=== PATIENT | female | born 1970 ===

== ENCOUNTER 2017-05-29 17:37 | Emergency (ER) | payer BC ==
--- NOTE | 2017-05-29 19:32 | C.PDOC ---
History Of Present Illness 47 yr old female presents to the ER with complaints of burning sensation to bilateral lower extremity and the hand in a stocking glove distribution for the past many months. Patient has already been diagnosed with diabetes peripheral neuropathy, takes Gabapentin 600 mg 2x a day as needed and a muscle relaxed occasionally. Patient states the muscle relaxer makes her too sleepy to work. Patient denies trauma, fever, chills, chest pain, SOB, nausea, vomiting, weakness or numbness. Time Seen by Provider: 05/29/17 19:18 Chief Complaint (Nursing): Lower Extremity Problem/Injury History Per: Patient History/Exam Limitations: no limitations Onset/Duration Of Symptoms: Days Past Medical History Reviewed: Historical Data, Nursing Documentation, Vital Signs Vital Signs: Last Vital Signs Temp 98 F 05/29/17 20:07 Pulse 87 05/29/17 20:07 Resp 20 05/29/17 20:07 BP 141/70 05/29/17 20:07 Pulse Ox 98 05/29/17 20:07 Family History: States: No Known Family Hx - Social History Hx Alcohol Use: Yes Hx Substance Use: No - Immunization History Hx Tetanus Toxoid Vaccination: No Hx Influenza Vaccination: Yes Hx Pneumococcal Vaccination: No Review Of Systems Except As Marked, All Systems Reviewed And Found Negative. Cardiovascular: Negative for: Chest Pain Respiratory: Negative for: Shortness of Breath Gastrointestinal: Negative for: Nausea, Vomiting Musculoskeletal: Positive for: Other (+ burning sensation to lower extremity and hands) Neurological: Negative for: Weakness, Numbness Physical Exam - Physical Exam Appears: Non-toxic, No Acute Distress, Chronically Ill, Other (+wasting ) Skin: Warm, Dry Oral Mucosa: Moist Respiratory: Normal Breath Sounds, No Rales, No Rhonchi, No Stridor, No Wheezing Extremity: No Calf Tenderness, Other (+ thinning of lower extremity, decrease sensation in bilateral feet, no tenderness to palpation to lower extremity) Neurological/Psych: Oriented x3, Normal Speech ED Course And Treatment O2 Sat by Pulse Oximetry: 100 (RA) Pulse Ox Interpretation: Normal Medical Decision Making Medical Decision Making: diabetic peripheral neuropathy, chronic already on gabapentin but taking PRN, encouraged to take regularly. Stepwise increase in meds for this dz to be arranged with Dr. Garcia- AUDIE BERNAL susp of DVT Disposition Doctor Will See Patient In The: Office Counseled Patient/Family Regarding: Studies Performed, Diagnosis - Disposition Referrals: Vic Garcia DO [Staff Provider] - Disposition: HOME/ ROUTINE Disposition Time: 19:31 Condition: GOOD Additional Instructions: continue gabapentin 600 mg twice a day EVERY day Discontinue the muscle relaxant medication if it makes you too sleepy to work Consider step-gómez increased meds per Dr. Garcia. Cardiovascular exercise: 45 mins/day x 5 days/week You need to increase lean muscle mass Follow-up w Dr. Garcia Instructions: Peripheral Neuropathy, Neuropathic Pain Forms: [employer] ([employer]) - Clinical Impression Clinical Impression: Peripheral neuropathic pain - Scribe Statement The provider has reviewed the documentation as recorded by the Shahidibe Lucille Tripathi Provider Attestation: All medical record entries made by the Scribe were at my direction and personally dictated by me. I have reviewed the chart and agree that the record accurately reflects my personal performance of the history, physical exam, medical decision making, and the department course for this patient. I have also personally directed, reviewed, and agree with the discharge instructions and disposition.
[2017-05-29 20:08] VITALS: BP 141/70; PULSE 87; RESP 20; TEMP 98
[2017-05-29 20:35] VITALS: O2SAT 100
== END 2017-05-29 20:07 | disposition home or self-care (01) ==
LOC: C.ER 17:37
DX: G62.9 Polyneuropathy, unspecified (principal)

== ENCOUNTER 2017-08-19 13:56 | Emergency (ER) | payer MEDICAID ==
[2017-08-19 14:25] VITALS: TEMP 98
[2017-08-19 16:31] VITALS: BP 147/87; PULSE 90; RESP 20; O2SAT 99
--- NOTE | 2017-08-19 16:45 | C.PDOC ---
History Of Present Illness Pt c/o right buttock pain radiating down right thigh. Denies injury. Time Seen by Provider: 08/19/17 15:38 Chief Complaint (Nursing): Lower Extremity Problem/Injury History Per: Patient, Family Onset/Duration Of Symptoms: Days (3) Current Symptoms Are (Timing): Still Present Severity: Moderate Additional History Per: Prior Records Past Medical History Reviewed: Historical Data, Nursing Documentation, Vital Signs Vital Signs: Last Vital Signs Temp 98 F 08/19/17 14:22 Pulse 90 08/19/17 16:30 Resp 20 08/19/17 16:30 BP 147/87 08/19/17 16:30 Pulse Ox 99 08/19/17 16:30 - Medical History PMH: No Chronic Diseases, Diabetes Family History: States: Unknown Family Hx - Social History Hx Alcohol Use: Yes Hx Substance Use: No - Immunization History Hx Tetanus Toxoid Vaccination: No Hx Influenza Vaccination: No Hx Pneumococcal Vaccination: No Review Of Systems Except As Marked, All Systems Reviewed And Found Negative. Constitutional: Negative for: Fever Cardiovascular: Negative for: Chest Pain Respiratory: Negative for: Shortness of Breath Gastrointestinal: Negative for: Vomiting, Abdominal Pain Genitourinary: Negative for: Dysuria, Incontinence Musculoskeletal: Negative for: Neck Pain, Back Pain, Leg Pain Skin: Negative for: Rash Neurological: Negative for: Weakness, Numbness Physical Exam - Physical Exam Appears: Non-toxic, No Acute Distress Skin: Normal Color, Warm, Dry, No Rash Head: Atraumatic, Normacephalic Eye(s): bilateral: Normal Inspection, PERRL, EOMI Neck: Normal ROM, Supple Cardiovascular: Rhythm Regular Respiratory: Normal Breath Sounds, No Accessory Muscle Use Gastrointestinal/Abdominal: Soft, No Tenderness Back: No CVA Tenderness, No Vertebral Tenderness Extremity: Normal ROM, No Pedal Edema, No Calf Tenderness Neurological/Psych: Oriented x3, Normal Motor, Normal Sensation ED Course And Treatment O2 Sat by Pulse Oximetry: 99 Pulse Ox Interpretation: Normal - CT Scan/US RLE duplex Other Rad Studies (CT/US): Read By Radiologist, Radiology Report Reviewed CT/US Interpretation: Negative for DVT Disposition Counseled Patient/Family Regarding: Studies Performed, Diagnosis, Need For Followup, Rx Given - Disposition Referrals: Vic Garcia DO [Family Provider] - Disposition: HOME/ ROUTINE Disposition Time: 16:47 Condition: STABLE Additional Instructions: Follow up with your doctor for further evaluation and treatment. Return to the ER if you develop weakness, numbness, redness, swelling, worsening of symptoms or if you have any other concerns. Prescriptions: traMADol/Acetaminophen [Ultracet 325 MG-37.5 MG] 1 tab PO Q4 PRN #30 tab PRN Reason: Pain, Severe (8-10) Instructions: Sciatica (DC) - Clinical Impression Clinical Impression: Right sided sciatica
--- NOTE | 2017-08-20 15:16 | VASCLAB ---
PROCEDURE: Right Lower Extremity Venous Duplex Exam. HISTORY: Pain r/o DVT PRIORS: None. TECHNIQUE: Right common femoral, femoral, popliteal and posterior tibial, peroneal and great saphenous veins were evaluated. Flow was assessed with color Doppler, compressibility, assessment of phasic flow and augmentation response. Report prepared by TANIA Horan, RVT FINDINGS: RIGHT: 1. Common Femoral Vein: 1.1. Compressibility - Fully compressible: Thrombus - None: Flow - Phasic: Augmentation -Normal: Reflux - None. 2. Femoral Vein: 2.1. Compressibility - Fully compressible: Thrombus - None: Flow - Phasic: Augmentation -Normal: Reflux - None. 3. Popliteal Vein: 3.1. Compressibility - Fully compressible: Thrombus - None: Flow - Phasic: Augmentation -Normal: Reflux - None. 4. Posterior Tibial Vein: 4.1. Compressibility - Fully compressible: Thrombus - None: Flow - Phasic: Augmentation -Normal: Reflux - None. 5. Peroneal Vein: 5.1. Compressibility - Fully compressible: Thrombus - None: Flow - Phasic: Augmentation -Normal: Reflux - None. 6. Great Saphenous Vein: 6.1. Compressibility - Fully compressible: Thrombus -None: Flow - Phasic: Augmentation - Normal: Reflux - None. OTHER FINDINGS: IMPRESSION: No evidence of deep or superficial vein thrombosis of the right lower extremity with excellent venous flow. Normal valve function noted of the right side. Normal venous flow noted in the left common femoral vein.
== END 2017-08-19 16:56 | disposition home or self-care (01) ==
LOC: C.ER 13:56 → MERGE 13:56 → C.ER 16:56
DX: M54.31 Sciatica, right side (principal)

== ENCOUNTER 2017-12-10 17:53 | Emergency (ER) | payer MEDICAID, OTHER ==
[2017-12-10 18:29] VITALS: BP 166/80; PULSE 92; RESP 18; O2SAT 99
[2017-12-10 19:27] VITALS: TEMP 99
[2017-12-10] MEDS ORDERED: Lidocaine 2% MPF (5 ml) Inj ONE (19:33)
[2017-12-10] MEDS ORDERED: Tmp-Smz 800 mg-160 mg DS Tab PO STA (19:44)
--- NOTE | 2017-12-10 19:44 | C.PDOC ---
History Of Present Illness Patient complains of itchy rash for 4 days after eating seafood at restaurant. Patient is allergic to shellfish but states she had eaten this dish before without reaction. Patient states she has been very itchy and was scratching areas. Patient then reports noticing her right forehead has a lump that has become painful and swollen. Denies any fever, SOB or drainage. Time Seen by Provider: 12/10/17 19:20 Chief Complaint (Nursing): Abnormal Skin Integrity History Per: Patient History/Exam Limitations: no limitations Onset/Duration Of Symptoms: Days (4) Current Symptoms Are (Timing): Still Present Quality Of Symptoms: Itching Additional History Per: Patient Past Medical History Reviewed: Historical Data, Nursing Documentation, Vital Signs Vital Signs: Last Vital Signs Temp 99 F 12/10/17 19:27 Pulse 92 H 12/10/17 18:25 Resp 18 12/10/17 18:25 BP 166/80 H 12/10/17 18:25 Pulse Ox 99 12/10/17 20:49 - Medical History PMH: Diabetes Surgical History: No Surg Hx Family History: States: Unknown Family Hx - Social History Hx Alcohol Use: Yes Hx Substance Use: Yes - Immunization History Hx Tetanus Toxoid Vaccination: No Hx Influenza Vaccination: No Hx Pneumococcal Vaccination: No Review Of Systems Constitutional: Negative for: Fever Respiratory: Negative for: Shortness of Breath Skin: Positive for: Rash Physical Exam - Physical Exam Appears: Non-toxic, No Acute Distress Skin: Warm, Dry, Other (2x2cm tender erythematous fluctuant mass to right forehead, near medial eyebrow. multiple excoriations to bilateral forearms with underlying erythematous maculopapular rash) Head: Atraumatic Eye(s): bilateral: Normal Inspection Oral Mucosa: Moist Neck: Supple Chest: Symmetrical, No Deformity, No Tenderness Cardiovascular: Rhythm Regular Respiratory: Normal Breath Sounds, No Rales, No Rhonchi, No Wheezing Extremity: Normal ROM, Capillary Refill (less than 2 seconds ) Neurological/Psych: Oriented x3, Normal Speech, Normal Cognition ED Course And Treatment O2 Sat by Pulse Oximetry: 99 (on RA) Pulse Ox Interpretation: Normal - Incision & Drainage Of Abscess Anesthesia: Lidocaine 2% Prep Used: Betadine Procedure: Incised W/Scalpel Blade#: (11), Drained Pus, Irrigated Cavity W/ Saline, Probed To Break Up Loculations, Cultures Obtained And Sent To Lab Medical Decision Making Medical Decision Making: Impression: dermatitis and abscess to right forehead Plan: I&D, wound culture, Bactrim and Keflex Obtain verbal consent for I&D of ascess. Explain the reason for procedure and risk of further infection, scarring and bleeding. The patient agreed to procedure. The area was cleansed in the usual fashion with betadyne and saline. Using standard, sterile technique the skin was anesthetized with lidocaine 2% . Incision made and drained abscess of purulent material. See full note. The patient tolerated the procedure well. Culture sent to the lab for analysis. Disposition Counseled Patient/Family Regarding: Diagnosis, Need For Followup, Rx Given - Disposition Referrals: Vic Garcia DO [Staff Provider] - Disposition: HOME/ ROUTINE Disposition Time: 19:49 Condition: GOOD Additional Instructions: Fabiola antibiticos dos veces al da Kat un seguimiento con pearson mdico para el control de la herida en 2-3 jj Falman benadryl por cualquier picazn Prescriptions: Cephalexin [cephalexin] 500 mg PO Q12 #14 cap Sulfamethoxazole/Trimethoprim [Bactrim DS 800 mg-160 mg] 1 tab PO BID #14 tab Instructions: Abscess Incision and Drainage (DC) Print Language: BOT[place]NA[place] - POA Present On Arrival: None - Clinical Impression Clinical Impression: Allergic contact dermatitis, Abscess of face - PA / PRODUCT EXPERT / Resident Statement MD/DO has reviewed & agrees with the documentation as recorded. - Scribe Statement The provider has reviewed the documentation as recorded by the Scribe (Lili Bedolla) All medical record entries made by the Scribe were at my direction and personally dictated by me. I have reviewed the chart and agree that the record accurately reflects my personal performance of the history, physical exam, medical decision making, and the department course for this patient. I have also personally directed, reviewed, and agree with the discharge instructions and disposition.
[2017-12-10] MEDS ORDERED: Tmp-Smz 800 mg-160 mg DS Tab ONE (20:18)
== END 2017-12-10 20:25 | disposition home or self-care (01) ==
LOC: C.ER 17:53
DX: L23.9 Allergic contact dermatitis, unspecified cause (principal); L02.01 Cutaneous abscess of face